=== PATIENT | female | born 1985 | race African-American/Black ===

== ENCOUNTER 2017-06-05 21:57 | Emergency (ER) | payer OTHER, MEDICAID ==
[~2017-06-05] VITALS: Ht 167.6 cm; Wt 59.0 kg
[2017-06-05 22:02] VITALS: BP 114/84
[2017-06-05] MEDS ORDERED: BACTRIM DS TAB1 EACH PO (22:26)
[2017-06-05] MEDS ORDERED: IBUPROFEN 800800 M1 PO (22:26)
[2017-06-05] MEDS ORDERED: KEFLEX500 M1 PO (22:26)
[2017-06-05] MEDS ORDERED: TRAMADOL 50 MG50 MG PO (22:26)
== END 2017-06-05 23:00 | disposition home or self-care (01) ==
LOC: M.ERS 21:57
DX: L03.012 Cellulitis of left finger (principal)